=== PATIENT | female | born 1980 | race Caucasian/White ===

== ENCOUNTER 2017-03-31 09:24 | Emergency (ER) | payer SELFPAY ==
[~2017-03-31] VITALS: Ht 154.9 cm; Wt 60.3 kg
[2017-03-31] MEDS ORDERED: CYCLOBENZAPRINE10 MG PO (10:15)
[2017-03-31] MEDS ORDERED: NAPROXEN500 MG PO (10:15)
== END 2017-03-31 12:43 | disposition home or self-care (01) ==
LOC: ED 09:24
DX: M54.5 Low back pain (principal); R10.9 Unspecified abdominal pain; Z88.0 Allergy status to penicillin; Z88.1 Allergy status to other antibiotic agents
CPT/HCPCS: 72100; 96372; 99283; J1885